=== PATIENT | male | born 1980 | race Caucasian/White ===

== ENCOUNTER 2017-09-14 11:19 | Emergency (ER) | payer OTHER ==
[~2017-09-14] VITALS: Ht 180.3 cm; Wt 59.0 kg
[2017-09-14 14:26] VITALS: BP 100/55
== END 2017-09-14 14:47 | disposition home or self-care (01) ==
LOC: ER 11:19
DX: K94.13 Enterostomy malfunction (principal); Z88.5 Allergy status to narcotic agent; Z88.8 Allergy status to other drugs, medicaments and biological substances

== ENCOUNTER 2018-11-22 17:54 | Emergency (ER) | payer OTHER ==
[~2018-11-22] VITALS: Ht 170.2 cm; Wt 59.0 kg
[2018-11-22 19:46] LABS: ABSOLUTE NEUTROPHILS 4.9 thou/uL (1.4-8.2); BASOPHILS 1.1 % (0.0-2.0); EOSINOPHILS 2.5 % (0.0-3.0); HEMATOCRIT 44.3 % (42.0-52.0); LYMPHOCYTES 29.3 % (24.0-44.0); MCH 30.1 pg (26.0-34.0); MCHC 33.8 g/dL (28.0-37.0); MCV 88.9 fL (80.0-100.0); MONOCYTES 4.4 % (1.0-8.0); PLATELET COUNT 202 thou/uL (150-400); POLYS 62.7 % (36.0-66.0); RBC 4.99 mil/uL (4.50-6.00); RDW 13.2 % (10.5-14.5); WBC 7.8 thou/uL (4.0-11.0)
[2018-11-22 19:49] LABS: CREATININE 0.6 mg/dL (0.7-1.3); POTASSIUM 3.8 mmol/L (3.5-5.1)
[2018-11-22 19:55] LABS: ALBUMIN 3.3 g/dL (3.4-5.0); TOTAL BILIRUBIN 0.2 mg/dL (<0.1-1.0)
[2018-11-22] MEDS ORDERED: VISTARIL 25 MG25 M1 PO ×2 (20:32→20:37)
[2018-11-22 21:35] VITALS: BP 123/65
--- NOTE | 2018-11-23 08:39 | EKG ---
[facility] [place] [address] ELECTROCARDIOGRAM REPORT Name: EMI ORTIZ Room #: DEP MARQUIS Blake#: [id number] ������������������ Admission: 11/22/18 ������������������ Attend Phys: Discharge: 11/22/18 ������������������ Date of : 84 Report #: [id number] ����������������������������������������������������������������� [id number] THIS REPORT FOR: //name// [facility] ED Test Date: 2018-11-22 Test Time: 19:32:29 Pat Name: EMI ORTIZ Department: Room: Gender: Beater Operator: jlambertz : 1980 Requested By: Sravani Davila Order Number: [id number] MD: Bubba Marti Measurements Intervals [place] Rate: 83 P: -30 ME: 176 QRS: 3 QRSD: 82 T: 47 QT: 358 QTc: 421 Interpretive Statements Sinus rhythm ST elev, probable normal early repol pattern No previous ECG available for comparison Electronically Signed On 11-23-2018 8:38:58 CDT by Bubba Marti [email or web address] ��������������������������������������������� <ELECTRONICALLY SIGNED> ���������������������������������������� By: Bubba Marti MD, [facility] ��������������������������������������������� 11/23/18 [id number] Bubba Marti MD, FACC /EPI
== END 2018-11-22 21:50 | disposition home or self-care (01) ==
LOC: ER 17:54
PROVIDERS: Physician Assistant
DX: F41.9 Anxiety disorder, unspecified (principal); Z88.5 Allergy status to narcotic agent; Z88.8 Allergy status to other drugs, medicaments and biological substances